=== PATIENT | male | born 1990 | race Caucasian/White ===

== ENCOUNTER 2020-03-22 20:01 | Emergency (ER) | payer OTHER ==
[2020-03-22] MEDS ORDERED: NORMAL SALINE 1000 ML 3,370 ML IV ONE (20:44)
[2020-03-22] MEDS ORDERED: ACETAMINOPHEN 325 MG TABLET PO ONE (20:44)
[2020-03-22] MEDS ORDERED: FENTANYL CITRATE INJ/PF 100 MCG/2 ML AMPUL IV ONE (20:45)
--- NOTE | 2020-03-22 20:55 | ER Document Report ---
ED Skin Rash/Insect Bite/Abscs - General Chief Complaint: Cyst Stated Complaint: CYST,FEVER Time Seen by Provider: 03/22/20 20:43 Primary Care Provider: BETTYE SANTANA [Primary Care Provider] - Follow up as needed Mode of Arrival: Ambulatory Information source: Patient Notes: Patient presents complaining of pilonidal abscess for the past week. Patient was seen at his doctor's office this afternoon and had an incision and drainage procedure performed. Patient has not been able to get his antibiotics filled just yet and developed a fever. Patient called his doctor who advised him to come to the ER for further management. - HPI Patient complains to provider of: Tender/swollen area Onset: Last week Onset/Duration: Worse Quality of pain: Sharp Pain Level: 5 Skin Character: Abscess, Swelling, Tenderness, Warm Skin Temperature: Warm Quality of rash: Painful Exacerbated by: Movement Relieved by: Denies Similar symptoms previously: Yes Recently seen / treated by doctor: Yes - Related Data Allergies/Adverse Reactions: Penicillins Allergy (Verified 03/22/20 21:38) Past Medical History - General Information source: Patient - Social History Smoking Status: Former Smoker Frequency of alcohol use: Occasional Drug Abuse: None Occupation: None Lives with: Family Family History: Reviewed & Not Pertinent - Medical History Medical History: Negative Past Surgical History: Reports: Hx Tonsillectomy Review of Systems - Review of Systems Constitutional: Fever EENT: No symptoms reported Cardiovascular: No symptoms reported. denies: Chest pain, Dizziness Respiratory: No symptoms reported. denies: Cough, Short of breath Gastrointestinal: No symptoms reported. denies: Vomiting Genitourinary: No symptoms reported Male Genitourinary: No symptoms reported Musculoskeletal: No symptoms reported Skin: Other - Abscess with surrounding erythema Hematologic/Lymphatic: No symptoms reported Neurological/Psychological: No symptoms reported Physical Exam - Vital signs Vitals: Temp Pulse Resp BP Pulse Ox 102.5 F H 118 H 28 H 116/75 99 03/22/20 20:08 03/22/20 20:08 03/22/20 20:08 03/22/20 20:08 03/22/20 20:08 - General General appearance: Appears well, Alert In distress: None - HEENT Head: Normocephalic, Atraumatic Eyes: Normal Conjunctiva: Normal Nasal: Normal Mouth/Lips: Normal Neck: Normal, Supple. No: Lymphadenopathy - Respiratory Respiratory status: No respiratory distress Chest status: Nontender Breath sounds: Normal. No: Rales, Rhonchi, Stridor Chest palpation: Normal - Cardiovascular Rhythm: Tachycardia Heart sounds: S1 appreciated, S2 appreciated Murmur: No - Abdominal Inspection: Normal Distension: No distension Bowel sounds: Normal Tenderness: Nontender - Back Back: Normal, Nontender - Extremities General upper extremity: Normal inspection, Normal ROM General lower extremity: Normal inspection, Normal ROM - Neurological Neuro grossly intact: Yes Cognition: Normal Roly Coma Scale Eye Opening: Spontaneous Roly Coma Scale Verbal: Oriented Roly Coma Scale Motor: Obeys Commands [place] Coma Scale Total: 15 - Psychological Associated symptoms: Normal affect, Normal mood - Skin Skin Temperature: Warm Skin Moisture: Dry Skin Color: Erythema Skin irregularity: Abscess - Patient with fluctuant pilonidal abscess patient with very small 0.5 cm incision with iodoform gauze in place Course - Re-evaluation Re-evalutation: 03/22/20 23:[address] Quezada regarding patient presentation and choice of antibiotics. He advises giving a dose of clindamycin IV and giving 450 orally 3 times daily 03/23/20 00:26 Patient defervesced and vital signs have improved. Patient does have a marked leukocytosis although does have an abscess with surrounding cellulitis. Abscess was drained and patient tolerated procedure well. Wound culture was obtained. Patient with no elevation in lactic acid at this time. Patient nontoxic in appearance. Discussed with patient worsening signs or symptoms that he should return immediately for. Patient verbalized understanding and is agreeable with discharge plan of care at this time. 03/23/20 00:[address] Quezada regarding discharge plan of care. Dr. Quezada agrees with plan for discharge as the patient is clinically improved with stable vital signs. - Vital Signs Vital signs: Temp Pulse Resp BP Pulse Ox 97.3 F 87 16 123/68 97 03/23/20 00:48 03/23/20 00:48 03/23/20 00:48 03/23/20 00:48 03/23/20 00:48 - Laboratory Result Diagrams: 03/22/20 21:20 03/22/20 21:20 Laboratory results interpreted by me: 03/22/20 03/22/20 03/22/20 21:20 21:20 23:43 WBC 19.8 H Lymph % (Auto) 12.5 L Absolute Neuts (auto) 16.1 H Seg Neutrophils % 81.0 H Sodium 136.7 L Lactic Acid 0.6 L Labs- All tests 24 hr 03/22/20 03/22/20 03/22/20 21:20 21:20 21:20 WBC 19.8 H RBC 4.95 Hgb 15.2 Hct 44.4 MCV 90 MCH 30.8 MCHC 34.3 RDW 12.4 Plt Count 276 Lymph % (Auto) 12.5 L [place] % (Auto) 5.5 Eos % (Auto) 0.2 Baso % (Auto) 0.8 Absolute Neuts (auto) 16.1 H Absolute Lymphs (auto) 2.5 Absolute Monos (auto) 1.1 Absolute Eos (auto) 0.0 Absolute Basos (auto) 0.2 Seg Neutrophils % 81.0 H PT 13.4 INR 1.00 VBG pH VBG pCO2 VBG HCO3 VBG Base Excess Sodium 136.7 L Potassium 4.4 Chloride 102 Carbon Dioxide 27 Anion Gap 8 BUN 10 Creatinine 0.94 Est GFR ( Amer) > 60 Est GFR (MDRD) Non-Af > 60 Glucose 102 Lactic Acid Calcium 9.4 Total Bilirubin 0.9 Direct Bilirubin 0.1 Neonat Total Bilirubin Not Reportable Neonat Direct Bilirubin Not Reportable Neonat Indirect Bili Not Reportable AST 30 ALT 29 Alkaline Phosphatase 81 Total Protein 7.8 Albumin 4.6 03/22/20 03/22/20 22:01 23:43 WBC RBC Hgb Hct MCV MCH MCHC RDW Plt Count Lymph % (Auto) [place] % (Auto) Eos % (Auto) Baso % (Auto) Absolute Neuts (auto) Absolute Lymphs (auto) Absolute Monos (auto) Absolute Eos (auto) Absolute Basos (auto) Seg Neutrophils % PT INR VBG pH 7.41 VBG pCO2 38.4 VBG HCO3 23.9 VBG Base Excess -0.4 Sodium Potassium Chloride Carbon Dioxide Anion Gap BUN Creatinine Est GFR ( Amer) Est GFR (MDRD) Non-Af Glucose Lactic Acid 0.6 L Calcium Total Bilirubin Direct Bilirubin Neonat Total Bilirubin Neonat Direct Bilirubin Neonat Indirect Bili AST ALT Alkaline Phosphatase Total Protein Albumin - EKG Interpretation by Me EKG shows normal: Sinus rhythm Rate: Tachycardia Additional EKG results interpreted by me: 03/22/20 21:25 Sinus tachycardia with a rate of 115, QTc 415, no ST elevation or T wave inversion, no acute ischemic changes Procedures - Incision and Drainage Buttock Type: Simple Anesthetic type: 1% Lidocaine, Other - buffered with sodium bicarb Blade size: 11 I&D procedure: Betadine prep applied Incision Method: Incision made by scalpel Amount/type of drainage: Large amount of foul-smelling purulent drainage Discharge - Discharge Clinical Impression: Pilonidal abscess Fever Qualifiers: Fever type: unspecified Qualified Code(s): R50.9 - Fever, unspecified Cellulitis Qualifiers: Site of cellulitis: buttock Qualified Code(s): L03.317 - Cellulitis of buttock Condition: Stable Disposition: HOME, SELF-CARE Instructions: Abscess ([facility]), Cellulitis ([facility]), Clindamycin ([facility]), Post Incision and Drainage Additional Instructions: Return immediately for any new or worsening symptoms Followup with your primary care provider, call tomorrow to make a followup appointment Return tomorrow for a recheck if you have any persistent fever Prescriptions: Clindamycin HCl [Cleocin 150 mg Capsule] 450 mg PO TID #63 capsule Hydrocodone/Acetaminophen [[place] 5-325 mg Tablet] 1 tab PO Q6 PRN #12 tablet PRN Reason: [facility]errals: [facility] [[facility]] - Follow up as needed
[2020-03-22 21:31] LABS: ABSOLUTE BASOPHILS # (AUTO) 0.2 10^3/uL (0.0-0.2); ABSOLUTE LYMPHOCYTES (AUTO) 2.5 10^3/uL (0.5-4.7); ABSOLUTE MONOCYTES (AUTO) 1.1 10^3/uL (0.1-1.4); ABSOLUTE NEUT (AUTO) 16.1 10^3/uL (1.7-8.2); BASOPHILS % (AUTO) 0.8 % (0-2); EOSINOPHILS % (AUTO) 0.2 % (0-6); HEMATOCRIT 44.4 % (37.9-51.0); HEMOGLOBIN 15.2 g/dL (13.5-17.0); LYMPHOCYTES % (AUTO) 12.5 % (13-45); MEAN CORPUSCULAR HEMOGLOBIN 30.8 pg (27.0-33.4); MEAN CORPUSCULAR HGB CONC 34.3 g/dL (32.0-36.0); MEAN CORPUSCULAR VOLUME 90 fl (80-97); MONOCYTES % (AUTO) 5.5 % (3-13); PLATELET COUNT 276 10^3/uL (150-450); RED BLOOD COUNT 4.95 10^6/uL (4.35-5.55); RED CELL DISTRIBUTION WIDTH 12.4 % (11.5-14.0); TOTAL CELLS COUNTED % (AUTO) 100 %; WHITE BLOOD COUNT 19.8 10^3/uL (4.0-10.5)
[2020-03-22 21:46] LABS: ALBUMIN 4.6 g/dL (3.5-5.0); ALKALINE PHOSPHATASE 81 U/L (38-126); ANION GAP 8 (5-19); ASPARTATE AMINO TRANSFERASE 30 U/L (17-59); BILIRUBIN,DIRECT 0.1 mg/dL (0.0-0.4); BILIRUBIN,TOTAL 0.9 mg/dL (0.2-1.3); BLOOD UREA NITROGEN 10 mg/dL (7-20); CALCIUM 9.4 mg/dL (8.4-10.2); CARBON DIOXIDE 27 mmol/L (22-30); CHLORIDE 102 mmol/L (98-107); GLUCOSE 102 mg/dL (75-110); POTASSIUM 4.4 mmol/L (3.6-5.0); TOTAL PROTEIN 7.8 g/dL (6.3-8.2)
[2020-03-22] MEDS ORDERED: SODIUM BICARBONATE 8.4% INJ 10 MEQ/10 ML DISP.SYRIN INJ ONE (21:56)
[2020-03-22 22:00] LABS: PROTHROMBIN TIME 13.4 SEC (11.4-15.4)
[2020-03-22 22:13] LABS: VENOUS BLOOD BASE EXCESS -0.4 mmol/L; VENOUS BLOOD HCO3 23.9 mmol/L (20-32); VENOUS BLOOD PCO2 38.4 mmHg (35-63); VENOUS BLOOD PH 7.41 (7.30-7.42)
[2020-03-22] MEDS ORDERED: CLINDAMYCIN 600 MG/D5W RTU 600 MG/50 ML RTUPB IV ONE (23:01)
--- NOTE | 2020-03-22 23:02 | EKG REPORT ---
SEVERITY:- OTHERWISE NORMAL ECG - SINUS TACHYCARDIA : Confirmed by: Davida Hair MD 22-Mar-2020 23:00:59
[2020-03-23 00:49] VITALS: BP 123/68
== END 2020-03-23 00:48 | disposition home or self-care (01) ==
LOC: ER 20:01
DX: L05.01 Pilonidal cyst with abscess (principal); L03.317 Cellulitis of buttock; R50.9 Fever, unspecified; R00.0 Tachycardia, unspecified; Z88.0 Allergy status to penicillin; Z87.891 Personal history of nicotine dependence
CPT/HCPCS: 93005; 99283; 96361; 96375; 96365; 36415; 87040; 87070; 87205; 83605; 85025; 85610; 87075; 87077; 80053; 82803; 93010; 10080; J3010; J3490; J7030